=== PATIENT | male | born 1945 | race Caucasian/White ===

== ENCOUNTER 2022-10-02 00:49 | Observation (INO) | payer OTHER ==
[2022-10-02 02:29] LABS: HEMATOCRIT 19.1 % (35.4-49); MCH 27.6 pg (25.7-33.7); MCHC 33.3 g/dl (32.0-35.9); MEAN CELL VOLUME 82.6 fl (80-96); MEAN PLT VOLUME 10.7 fl (7.5-11.1); RBC 2.32 M/mm3 (4.00-5.60); RDW 14.9 % (11.9-15.9); WHITE BLOOD COUNT 4.1 K/mm3 (4.0-10.0)
[2022-10-02 02:37] LABS: HEMOGLOBIN 6.4 GM/dL (11.7-16.9)
[2022-10-02 02:38] LABS: PLATELET COUNT 17 10^3/uL (134-434)
[2022-10-02 02:52] LABS: POTASSIUM 4.5 mmol/L (3.5-5.1)
[2022-10-02 02:54] LABS: ALBUMIN 2.9 g/dl (3.4-5.0); BLOOD UREA NITROGEN 23.5 mg/dL (7-18); CALCIUM 7.7 mg/dL (8.5-10.1)
[2022-10-02 02:57] LABS: CREATININE 1.3 mg/dL (0.55-1.3)
[2022-10-02 02:59] LABS: TOT PROT 7.1 g/dl (6.4-8.2)
[2022-10-02 04:21] LABS: ANISOCYTOSIS 2+; CORRECTED WBC 3.69 K/mm3; MACROCYTOSIS 0; OVALOCYTE 2+; TARGET CELLS 1+; TEAR DROP CELLS 2+
[2022-10-02] MEDS ORDERED: DOCUSATE SODIUM 100 MG CAPSULE (FP) PO PRN (05:38)
[2022-10-02] MEDS ORDERED: ACETAMINOPHEN 325 MG TABLET (FP) PO PRN (05:38)
[2022-10-02 06:13] LABS: INR 1.48 (0.83-1.09); PROTHROMBIN TIME (PATIENT) 17.1 SEC (9.7-13.0)
[2022-10-02 06:15] LABS: ACTIVATED PTT 36.2 SECONDS (25.2-36.5)
[2022-10-02 06:23] LABS: MAGNESIUM 1.9 mg/dL (1.8-2.4)
[2022-10-02 06:27] LABS: PHOSPHOROUS 4.2 mg/dL (2.5-4.9)
[2022-10-02 08:01] VITALS: BMI 23.5
[2022-10-03] MEDS ORDERED: MAGNESIUM HYDROX 2400MG/30ML ORAL SUSPENSION 30 ML CUP PO PRN (02:14)
[2022-10-03] MEDS: LORazepam 0.5 MG TABLET PO PRN ×2 (02:26→22:12)
[2022-10-03 08:33] LABS: HEMOGLOBIN 8.4 GM/dL (11.7-16.9); MCH 29.2 pg (25.7-33.7); MCHC 35.1 g/dl (32.0-35.9); MEAN CELL VOLUME 83.4 fl (80-96); MEAN PLT VOLUME 8.4 fl (7.5-11.1); RBC 2.88 M/mm3 (4.00-5.60); RDW 14.9 % (11.9-15.9); WHITE BLOOD COUNT 3.8 K/mm3 (4.0-10.0)
[2022-10-03 08:51] LABS: POTASSIUM 3.8 mmol/L (3.5-5.1)
[2022-10-03 09:01] LABS: PLATELET COUNT 24 10^3/uL (134-434)
[2022-10-03 09:05] LABS: CALCIUM 7.5 mg/dL (8.5-10.1)
[2022-10-03 09:06] LABS: BLOOD UREA NITROGEN 21.4 mg/dL (7-18)
[2022-10-03] MEDS: CALCITRIOL 0.25 MCG CAPSULE (FP) PO SCH ×2 (10:09→22:04)
[2022-10-03] MEDS: NYSTATIN 100,000 UNIT/GM TOPICAL CREAM 15 GM TUBE TP SCH (10:09)
[2022-10-03] MEDS: METOPROLOL TARTRATE 25 MG TABLET (FP) PO SCH (10:09)
[2022-10-03] MEDS: MAGNESIUM OXIDE 400 MG TABLET (FP) PO SCH (10:09)
[2022-10-03] MEDS: OLANZapine 10 MG TABLET PO SCH (10:10)
[2022-10-03] MEDS: PANTOPRAZOLE SOD 40 MG SUSPENSION PACKET PO SCH (10:11)
[2022-10-03 10:22] LABS: ANISOCYTOSIS 3+; MACROCYTOSIS 0
[2022-10-03] MEDS ORDERED: ATORVASTATIN CA 10 MG TABLET (FP) PO SCH (22:00)
[2022-10-03] MEDS ORDERED: MELATONIN 5 MG TABLETS PO ONE (23:45)
[2022-10-04] MEDS ORDERED: MELATONIN 5 MG TABLETS PO ONE (03:15)
[2022-10-04 07:17] VITALS: RESP 18
[2022-10-04 08:27] LABS: HEMATOCRIT 25.3 % (35.4-49); HEMOGLOBIN 8.6 GM/dL (11.7-16.9); MCH 28.9 pg (25.7-33.7); MCHC 34.1 g/dl (32.0-35.9); MEAN CELL VOLUME 84.7 fl (80-96); RBC 2.99 M/mm3 (4.00-5.60); RDW 14.8 % (11.9-15.9)
[2022-10-04 08:31] LABS: MEAN PLT VOLUME 8.4 fl (7.5-11.1); POTASSIUM 3.8 mmol/L (3.5-5.1)
[2022-10-04 08:34] LABS: ALBUMIN 2.8 g/dl (3.4-5.0); CALCIUM 7.4 mg/dL (8.5-10.1)
[2022-10-04 08:35] LABS: BLOOD UREA NITROGEN 20.6 mg/dL (7-18)
[2022-10-04 08:38] LABS: CREATININE 1.1 mg/dL (0.55-1.3)
[2022-10-04 08:39] LABS: TOT PROT 6.8 g/dl (6.4-8.2)
[2022-10-04 08:40] LABS: BILIRUBIN,TOTAL 2.2 mg/dL (0.2-1)
[2022-10-04 09:34] LABS: ANISOCYTOSIS 1+; MACROCYTOSIS 0; OVALOCYTE 1+
[2022-10-04] MEDS: MAGNESIUM OXIDE 400 MG TABLET (FP) PO SCH (09:44)
[2022-10-04] MEDS: CALCITRIOL 0.25 MCG CAPSULE (FP) PO SCH (09:45)
[2022-10-04] MEDS: OLANZapine 10 MG TABLET PO SCH (09:45)
[2022-10-04] MEDS: PANTOPRAZOLE SOD 40 MG SUSPENSION PACKET PO SCH (09:45)
[2022-10-04] MEDS: METOPROLOL TARTRATE 25 MG TABLET (FP) PO SCH (09:45)
[2022-10-04] MEDS: NYSTATIN 100,000 UNIT/GM TOPICAL CREAM 15 GM TUBE TP SCH (09:45)
[2022-10-04 09:50] LABS: PLATELET COUNT 21 10^3/uL (134-434)
[2022-10-04 18:26] VITALS: BP 113/53; PULSE 86; TEMP 98.6
== END 2022-10-04 20:30 ==
LOC: JER 00:49 → JERBED 03:01 → J7W 07:46
PROVIDERS: ADMIT Internal Medicine; ATTEND Family Medicine
PROC: 30233N1 Transfusion of Nonautologous Red Blood Cells into Peripheral Vein, Percutaneous Approach (ICD-10-PCS; principal; 2022-10-02)
DX: D64.9 Anemia, unspecified (principal); C88.0 Waldenstrom macroglobulinemia; Z85.118 Personal history of other malignant neoplasm of bronchus and lung; E03.9 Hypothyroidism, unspecified; J44.9 Chronic obstructive pulmonary disease, unspecified; E78.5 Hyperlipidemia, unspecified; I12.9 Hypertensive chronic kidney disease with stage 1 through stage 4 chronic kidney disease, or unspecified chronic kidney disease; N18.9 Chronic kidney disease, unspecified; Z87.891 Personal history of nicotine dependence; F41.8 Other specified anxiety disorders; K21.9 Gastro-esophageal reflux disease without esophagitis
CPT/HCPCS: 36415; 36430; 36511; 80048; 80053; 82272; 83540; 83550; 83735; 84100; 84443; 84484; 85025; 85610; 85730; 86850; 86900; 86901; 86922; 93005; 93010; 97116-GP; 97162-GP; 99285-25; G0378; P9034; P9038; P9058

== ENCOUNTER 2022-10-04 20:37 | Observation (INO) | payer OTHER ==
[2022-10-04 20:44] VITALS: BMI 24.2
[2022-10-04] MEDS ORDERED: MAGNESIUM HYDROX 2400MG/30ML ORAL SUSPENSION 30 ML CUP PO PRN (23:07)
[2022-10-04] MEDS ORDERED: ACETAMINOPHEN 1000 MG/100 ML BAG IVPB PRN (23:13)
[2022-10-05] MEDS ORDERED: LORazepam 0.5 MG TABLET ONE (00:28)
[2022-10-05] MEDS ORDERED: ATORVASTATIN CA 10 MG TABLET (FP) ONE (00:28)
[2022-10-05] MEDS: LORazepam 0.5 MG TABLET PO PRN ×2 (00:31→18:52)
[2022-10-05] MEDS: ATORVASTATIN CA 10 MG TABLET (FP) PO SCH ×2 (00:32→21:43)
[2022-10-05] MEDS ORDERED: MELATONIN 5 MG TABLETS PO ONE (00:53)
[2022-10-05] MEDS: CALCITRIOL 0.25 MCG CAPSULE (FP) PO SCH ×3 (01:20→21:43)
[2022-10-05 06:50] LABS: HEMATOCRIT 23.8 % (35.4-49); HEMOGLOBIN 8.1 GM/dL (11.7-16.9); MCH 28.8 pg (25.7-33.7); MCHC 34.2 g/dl (32.0-35.9); MEAN CELL VOLUME 84.3 fl (80-96); MEAN PLT VOLUME 10.3 fl (7.5-11.1); RBC 2.82 M/mm3 (4.00-5.60); RDW 14.5 % (11.9-15.9); WHITE BLOOD COUNT 3.4 K/mm3 (4.0-10.0)
[2022-10-05 07:09] LABS: PLATELET COUNT 19 10^3/uL (134-434); POTASSIUM 3.9 mmol/L (3.5-5.1)
[2022-10-05 07:12] LABS: ALBUMIN 2.7 g/dl (3.4-5.0); BLOOD UREA NITROGEN 22.6 mg/dL (7-18)
[2022-10-05 07:17] LABS: TOT PROT 6.4 g/dl (6.4-8.2)
[2022-10-05 07:31] LABS: BILIRUBIN,TOTAL 1.1 mg/dL (0.2-1)
[2022-10-05 09:11] LABS: ANISOCYTOSIS 0; HELMET CELLS 0; HOWELL-JOLLY BODIES 0; MACROCYTOSIS 0; OVALOCYTE 0; ROULEAU 0; SICKELED CELLS 0; TARGET CELLS 0; TEAR DROP CELLS 0; TOXIC GRANULATION 0
[2022-10-05] MEDS: METOPROLOL TARTRATE 25 MG TABLET (FP) PO SCH (10:11)
[2022-10-05] MEDS: MAGNESIUM OXIDE 400 MG TABLET (FP) PO SCH (10:12)
[2022-10-05] MEDS: PANTOPRAZOLE 40 MG TABLET PO SCH (10:12)
[2022-10-05] MEDS: OLANZapine 10 MG TABLET PO SCH (12:33)
[2022-10-05] MEDS: NYSTATIN 100,000 UNIT/GM TOPICAL CREAM 15 GM TUBE TP SCH (12:34)
[2022-10-05] MEDS ORDERED: MELATONIN 5 MG TABLETS PO SCH (22:00)
[2022-10-06 02:21] VITALS: RESP 18
[2022-10-06] MEDS: MAGNESIUM OXIDE 400 MG TABLET (FP) PO SCH (09:12)
[2022-10-06] MEDS: METOPROLOL TARTRATE 25 MG TABLET (FP) PO SCH (09:12)
[2022-10-06] MEDS: CALCITRIOL 0.25 MCG CAPSULE (FP) PO SCH (09:13)
[2022-10-06] MEDS: OLANZapine 10 MG TABLET PO SCH (09:14)
[2022-10-06] MEDS: PANTOPRAZOLE 40 MG TABLET PO SCH (09:15)
[2022-10-06] MEDS: NYSTATIN 100,000 UNIT/GM TOPICAL CREAM 15 GM TUBE TP SCH (09:16)
[2022-10-06 10:19] VITALS: BP 125/65; PULSE 92; TEMP 97.6
== END 2022-10-06 14:13 ==
LOC: JER 20:37 → JERBED 22:52 → J4S 10-05 07:46
PROVIDERS: ADMIT Internal Medicine; ATTEND Family Medicine
DX: S40.211A Abrasion of right shoulder, initial encounter (principal); D64.9 Anemia, unspecified; C88.0 Waldenstrom macroglobulinemia; Z85.118 Personal history of other malignant neoplasm of bronchus and lung; W08.XXXA Fall from other furniture, initial encounter; Y93.89 Activity, other specified; Y92.89 Other specified places as the place of occurrence of the external cause; I12.9 Hypertensive chronic kidney disease with stage 1 through stage 4 chronic kidney disease, or unspecified chronic kidney disease; N18.9 Chronic kidney disease, unspecified; K21.9 Gastro-esophageal reflux disease without esophagitis; F41.8 Other specified anxiety disorders; E03.9 Hypothyroidism, unspecified; J44.9 Chronic obstructive pulmonary disease, unspecified; Z87.891 Personal history of nicotine dependence; M19.90 Unspecified osteoarthritis, unspecified site
CPT/HCPCS: 36415; 70450-TC; 71045-TC-FY; 72125-TC; 72170-TC-FY; 73030-TC-RT-FY; 73521-TC-FY; 80053; 85025; 99285-25; G0378

== ENCOUNTER 2022-10-12 00:23 | Observation (INO) | payer OTHER ==
[2022-10-12 02:25] LABS: HEMATOCRIT 20.8 % (35.4-49); MCH 27.8 pg (25.7-33.7); MCHC 33.7 g/dl (32.0-35.9); MEAN CELL VOLUME 82.5 fl (80-96); RBC 2.53 M/mm3 (4.00-5.60); RDW 14.7 % (11.9-15.9); WHITE BLOOD COUNT 4.9 K/mm3 (4.0-10.0)
[2022-10-12 02:36] LABS: INR 1.45 (0.83-1.09); PROTHROMBIN TIME (PATIENT) 16.8 SEC (9.7-13.0)
[2022-10-12 02:39] LABS: ACTIVATED PTT 38.5 SECONDS (25.2-36.5)
[2022-10-12 02:40] LABS: PLATELET COUNT 16 10^3/uL (134-434)
[2022-10-12 02:43] LABS: POTASSIUM 4.3 mmol/L (3.5-5.1)
[2022-10-12 02:46] LABS: ALBUMIN 2.7 g/dl (3.4-5.0); BLOOD UREA NITROGEN 16.5 mg/dL (7-18); CALCIUM 7.6 mg/dL (8.5-10.1)
[2022-10-12 02:51] LABS: BILIRUBIN,TOTAL 0.9 mg/dL (0.2-1); TOT PROT 6.8 g/dl (6.4-8.2)
[2022-10-12 04:28] LABS: ANISOCYTOSIS 2+; MACROCYTOSIS 0; OVALOCYTE 2+
[2022-10-12] MEDS ORDERED: LORazepam 0.5 MG TABLET PO PRN (09:15)
[2022-10-12] MEDS ORDERED: MAGNESIUM HYDROX 2400MG/30ML ORAL SUSPENSION 30 ML CUP PO PRN (09:15)
[2022-10-12] MEDS ORDERED: FAMOTIDINE 20 MG/50 ML IVPB 20 MG/50 ML MG IVPB ONE (10:29)
[2022-10-12] MEDS ORDERED: MAGNESIUM OXIDE 400 MG TABLET (FP) ONE (10:29)
[2022-10-12] MEDS ORDERED: METOPROLOL TARTRATE 25 MG TABLET (FP) ONE (10:29)
[2022-10-12] MEDS: METOPROLOL TARTRATE 25 MG TABLET (FP) PO SCH (10:37)
[2022-10-12] MEDS: FAMOTIDINE 20 MG/50 ML IVPB 20 MG/50 ML MG IVPB SCH ×2 (10:37→22:20)
[2022-10-12] MEDS: MAGNESIUM OXIDE 400 MG TABLET (FP) PO SCH (10:37)
[2022-10-12] MEDS: OLANZapine 10 MG TABLET PO SCH (10:38)
[2022-10-12] MEDS: CALCITRIOL 0.25 MCG CAPSULE (FP) PO SCH ×2 (11:32→22:18)
[2022-10-12 12:52] LABS: HEMATOCRIT 24.2 % (35.4-49); HEMOGLOBIN 8.2 GM/dL (11.7-16.9); MCH 28.1 pg (25.7-33.7); MCHC 33.7 g/dl (32.0-35.9); MEAN CELL VOLUME 83.3 fl (80-96); MEAN PLT VOLUME 6.5 fl (7.5-11.1); RBC 2.91 M/mm3 (4.00-5.60); RDW 14.7 % (11.9-15.9); WHITE BLOOD COUNT 4.9 K/mm3 (4.0-10.0)
[2022-10-12 12:55] LABS: PLATELET COUNT 12 10^3/uL (134-434)
[2022-10-12 13:43] LABS: POTASSIUM 4.2 mmol/L (3.5-5.1)
[2022-10-12 13:47] LABS: ALBUMIN 2.7 g/dl (3.4-5.0); BLOOD UREA NITROGEN 18.7 mg/dL (7-18); CALCIUM 7.7 mg/dL (8.5-10.1)
[2022-10-12 13:50] LABS: CREATININE 0.8 mg/dL (0.55-1.3)
[2022-10-12 13:52] LABS: BILIRUBIN,TOTAL 1.1 mg/dL (0.2-1); TOT PROT 6.8 g/dl (6.4-8.2)
[2022-10-12 13:54] LABS: ANISOCYTOSIS 1+; MACROCYTOSIS 0
[2022-10-12 18:02] VITALS: RESP 20; BMI 23.7
[2022-10-12] MEDS ORDERED: PHENELZINE SULFATE 15 MG PO SCH (22:00)
[2022-10-12] MEDS ORDERED: ATORVASTATIN CA 10 MG TABLET (FP) PO SCH (22:00)
[2022-10-12] MEDS ORDERED: MELATONIN 5 MG TABLETS PO PRN (22:19)
[2022-10-13 09:03] LABS: HEMATOCRIT 21.7 % (35.4-49); HEMOGLOBIN 7.4 GM/dL (11.7-16.9); MCH 28.3 pg (25.7-33.7); MCHC 34.1 g/dl (32.0-35.9); MEAN CELL VOLUME 82.8 fl (80-96); MEAN PLT VOLUME 8.6 fl (7.5-11.1); PLATELET COUNT 47 10^3/uL (134-434); RBC 2.62 M/mm3 (4.00-5.60); RDW 14.8 % (11.9-15.9); WHITE BLOOD COUNT 3.8 K/mm3 (4.0-10.0)
[2022-10-13 09:34] LABS: CALCIUM 7.7 mg/dL (8.5-10.1)
[2022-10-13 09:35] LABS: ALBUMIN 2.8 g/dl (3.4-5.0); BLOOD UREA NITROGEN 19.6 mg/dL (7-18)
[2022-10-13 09:38] LABS: CREATININE 0.8 mg/dL (0.55-1.3)
[2022-10-13 09:39] LABS: TOT PROT 6.8 g/dl (6.4-8.2)
[2022-10-13 10:32] LABS: ANISOCYTOSIS 0; HELMET CELLS 0; HOWELL-JOLLY BODIES 0; MACROCYTOSIS 0; OVALOCYTE 0; ROULEAU 0; SICKELED CELLS 0; TARGET CELLS 0; TEAR DROP CELLS 0; TOXIC GRANULATION 0
[2022-10-13] MEDS ORDERED: FAMOTIDINE 20 MG TABLET PO SCH (10:45)
[2022-10-13] MEDS: CALCITRIOL 0.25 MCG CAPSULE (FP) PO SCH (10:47)
[2022-10-13] MEDS: METOPROLOL TARTRATE 25 MG TABLET (FP) PO SCH (10:48)
[2022-10-13] MEDS: MAGNESIUM OXIDE 400 MG TABLET (FP) PO SCH (10:48)
[2022-10-13] MEDS: OLANZapine 10 MG TABLET PO SCH (10:48)
[2022-10-13] MEDS: FAMOTIDINE 20 MG/50 ML IVPB 20 MG/50 ML MG IVPB SCH (11:02)
[2022-10-13 12:42] VITALS: BP 140/66; PULSE 85; TEMP 98.8
[2022-10-13] MEDS: PHENELZINE SULFATE 15 MG PO SCH (15:26)
== END 2022-10-13 15:20 ==
LOC: JER 00:23 → JERBED 05:50 → J8W 16:46
PROVIDERS: ADMIT Family Medicine; ATTEND Family Medicine
PROC: 30233N1 Transfusion of Nonautologous Red Blood Cells into Peripheral Vein, Percutaneous Approach (ICD-10-PCS; principal; 2022-10-12)
DX: R79.9 Abnormal finding of blood chemistry, unspecified (principal); C88.0 Waldenstrom macroglobulinemia; I13.10 Hypertensive heart and chronic kidney disease without heart failure, with stage 1 through stage 4 chronic kidney disease, or unspecified chronic kidney disease; E78.5 Hyperlipidemia, unspecified; J44.9 Chronic obstructive pulmonary disease, unspecified; E03.9 Hypothyroidism, unspecified; K21.9 Gastro-esophageal reflux disease without esophagitis; N18.9 Chronic kidney disease, unspecified; Z87.891 Personal history of nicotine dependence
CPT/HCPCS: 36415; 36430; 80053; 84484; 85025; 85610; 85730; 86850; 86900; 86901; 86922; 93005; 93010; 99285-25; G0378; P9034; P9058

== ENCOUNTER 2022-10-19 00:32 | Observation (INO) | payer OTHER ==
[2022-10-19 00:46] VITALS: BMI 23.3
[2022-10-19 01:34] LABS: HEMATOCRIT 20.9 % (35.4-49); HEMOGLOBIN 7.2 GM/dL (11.7-16.9); MCH 28.6 pg (25.7-33.7); MCHC 34.6 g/dl (32.0-35.9); MEAN CELL VOLUME 82.5 fl (80-96); MEAN PLT VOLUME 7.7 fl (7.5-11.1); RBC 2.53 M/mm3 (4.00-5.60); RDW 14.6 % (11.9-15.9); WHITE BLOOD COUNT 3.7 K/mm3 (4.0-10.0)
[2022-10-19 03:17] LABS: ANISOCYTOSIS 2+; MACROCYTOSIS 0; OVALOCYTE 2+; TEAR DROP CELLS 2+
[2022-10-19 03:18] LABS: PLATELET COUNT 18 10^3/uL (134-434)
[2022-10-19] MEDS ORDERED: MAGNESIUM HYDROX 2400MG/30ML ORAL SUSPENSION 30 ML CUP PO PRN (04:44)
[2022-10-19] MEDS ORDERED: LORazepam 0.5 MG TABLET PO PRN (04:44)
[2022-10-19] MEDS ORDERED: ACETAMINOPHEN 325 MG TABLET (FP) PO PRN (05:06)
[2022-10-19] MEDS ORDERED: MELATONIN 5 MG TABLETS PO PRN (05:11)
[2022-10-19] MEDS ORDERED: MAGNESIUM OXIDE 400 MG TABLET (FP) ONE (09:32)
[2022-10-19] MEDS ORDERED: METOPROLOL TARTRATE 25 MG TABLET (FP) ONE (09:32)
[2022-10-19] MEDS ORDERED: METOPROLOL TARTRATE 25 MG TABLET (FP) PO SCH (10:00)
[2022-10-19] MEDS ORDERED: OLANZapine 10 MG TABLET PO SCH (10:00)
[2022-10-19] MEDS ORDERED: ZINC OXIDE 20% TOPICAL OINTMENT 30 GM TUBE TP SCH (10:00)
[2022-10-19] MEDS ORDERED: PHENELZINE SULFATE 15 MG PO SCH ×2 (10:00→22:00)
[2022-10-19] MEDS ORDERED: MAGNESIUM OXIDE 400 MG TABLET (FP) PO SCH (10:00)
[2022-10-19] MEDS ORDERED: CALCITRIOL 0.25 MCG CAPSULE (FP) PO SCH (10:00)
[2022-10-19] MEDS ORDERED: FUROSEMIDE 40 MG/4 ML INJECTABLE VIAL IVPUSH SCH (11:22)
[2022-10-19] MEDS ORDERED: CALCIUM (OYSTER SHELL) 500 MG TABLET (FP) PO SCH (12:00)
[2022-10-19] MEDS ORDERED: FUROSEMIDE 40 MG/4 ML INJECTABLE VIAL ONE (12:09)
[2022-10-19 12:16] VITALS: BP 118/54; PULSE 77; RESP 18; TEMP 98.1
[2022-10-19] MEDS ORDERED: ATORVASTATIN CA 10 MG TABLET (FP) PO SCH (22:00)
== END 2022-10-19 13:40 ==
LOC: JER 00:32 → JERBED 03:36
PROVIDERS: ADMIT Internal Medicine; ATTEND Family Medicine
PROC: 3E033GC Introduction of Other Therapeutic Substance into Peripheral Vein, Percutaneous Approach (ICD-10-PCS; principal; 2022-10-19)
PROC: 30233N1 Transfusion of Nonautologous Red Blood Cells into Peripheral Vein, Percutaneous Approach (ICD-10-PCS; 2022-10-19)
DX: C88.0 Waldenstrom macroglobulinemia (principal); F41.8 Other specified anxiety disorders; K21.9 Gastro-esophageal reflux disease without esophagitis; J44.9 Chronic obstructive pulmonary disease, unspecified; I10 Essential (primary) hypertension; E78.5 Hyperlipidemia, unspecified; D64.9 Anemia, unspecified
CPT/HCPCS: 36415; 36430; 85025; 86850; 86900; 86901; 86922; 93005; 93010; 96374; 99285-25; G0378; P9034; P9058

== ENCOUNTER 2022-11-21 03:57 | Inpatient (IN) | payer OTHER ==
[2022-11-21] MEDS ORDERED: VANCOMYCIN 1,000 MG in DEXTROSE 5%-WATER - 250 ML IVPB ONE (04:05)
[2022-11-21] MEDS ORDERED: ACETAMINOPHEN 1000 MG/100 ML BAG IVPB ONE (04:05)
[2022-11-21] MEDS ORDERED: SODIUM CHLORIDE 0.9% 500 ML INFUS.BAG IV ONE (04:05)
[2022-11-21] MEDS ORDERED: ACETAMINOPHEN INJECTION 100 ML IVPB ONE (04:06)
[2022-11-21] MEDS ORDERED: PIPERACILLIN/TAZOB 4.5 GM 4.5 GM in DEXTROSE 5%-WATER 100 ML IVPB ONE (04:06)
[2022-11-21] MEDS ORDERED: LORazepam 2 MG/ML SDV VIAL IM ONE (04:07)
[2022-11-21] MEDS ORDERED: diazePAM CARPU-JECT 10 MG/2 ML DISP.SYRIN IVPUSH ONE ×2 (04:15→04:25)
[2022-11-21] MEDS ORDERED: diazePAM CARPU-JECT 10 MG/2 ML DISP.SYRIN ONE ×2 (04:16→05:12)
[2022-11-21] MEDS ORDERED: PIPERACILLIN/TAZOB 4.5 GM 4.5 GM/100 ML BAG IVPB ONE (04:19)
[2022-11-21] MEDS ORDERED: VANCOMYCIN/WATER FOR INJ (PEG) 1,000 MG/200 ML BAG IVPB ONE (04:19)
[2022-11-21] MEDS ORDERED: levETIRAcetam 500 MG/5 ML INJECTION VIAL IVPB ONE (04:23)
[2022-11-21 04:27] LABS: HEMATOCRIT 27.1 % (35.4-49); HEMOGLOBIN 9.3 GM/dL (11.7-16.9); MCH 28.3 pg (25.7-33.7); MCHC 34.3 g/dl (32.0-35.9); MEAN CELL VOLUME 82.4 fl (80-96); MEAN PLT VOLUME 8.6 fl (7.5-11.1); PLATELET COUNT 45 10^3/uL (134-434); RBC 3.29 M/mm3 (4.00-5.60); RDW 14.8 % (11.9-15.9); WHITE BLOOD COUNT 14.2 K/mm3 (4.0-10.0)
[2022-11-21] MEDS ORDERED: [UNRECOGNIZED DRUG - REMARK] IVPUSH ONE (04:28)
[2022-11-21 04:37] LABS: VENOUS BASE EXCESS -9.7 mmol/L (-2-2); VENOUS O2 SATURATION 79.3 % (70-80); VENOUS PCO2 36.5 mmHg (38-52); VENOUS PH 7.27 (7.310-7.410)
[2022-11-21] MEDS ORDERED: RAPID SEQUENCE INTUBATION KIT NR ONE (04:39)
[2022-11-21 04:42] LABS: INR 2.11 (0.83-1.09); PROTHROMBIN TIME (PATIENT) 24.3 SEC (9.7-13.0)
[2022-11-21 04:44] LABS: ACTIVATED PTT 39.3 SECONDS (25.2-36.5)
[2022-11-21 04:48] LABS: CHLORIDE 106 mmol/L (98-107); SODIUM 144 mmol/L (136-145)
[2022-11-21] MEDS ORDERED: NOREPINEPHRINE BITARTRATE/D5W 8 MG/250 ML BAG IVPB ONE (04:48)
[2022-11-21 04:50] LABS: ALBUMIN 2.9 g/dl (3.4-5.0); BLOOD UREA NITROGEN 37.1 mg/dL (7-18); CALCIUM 8.7 mg/dL (8.5-10.1); CO2 22 mmol/L (21-32); GLUCOSE,RANDOM 116 mg/dL (74-106)
[2022-11-21] MEDS ORDERED: PHENYLEPHRINE HCL 10 MG/1 ML SINGLE DOSE VIAL ONE ×2 (04:51→04:53)
[2022-11-21 04:53] LABS: CREATININE 2.1 mg/dL (0.55-1.3); SGOT/AST 92 U/L (15-37)
[2022-11-21 04:54] LABS: SGPT/ALT 32 U/L (13-61)
[2022-11-21 04:55] LABS: BILIRUBIN,TOTAL 0.9 mg/dL (0.2-1); TOT PROT 7.7 g/dl (6.4-8.2)
[2022-11-21 04:56] LABS: ALK PHOS 144 U/L (45-117)
[2022-11-21] MEDS ORDERED: FENTANYL CITRATE/PF 50 MCG/ML VIAL ONE (05:02)
[2022-11-21 05:09] LABS: URINE APPEARANCE CLEAR; URINE BILIRUBIN NEGATIVE (NEGATIVE); URINE COLOR DK YELLOW; URINE GLUCOSE (UA) NEGATIVE (NEGATIVE); URINE KETONE NEGATIVE (NEGATIVE); URINE LEUK ESTERASE NEGATIVE (NEGATIVE); URINE NITRITE NEGATIVE (NEGATIVE); URINE PROTEIN TRACE (NEGATIVE)
[2022-11-21 05:15] LABS: ANION GAP 16 MMOL/L (8-16)
[2022-11-21] MEDS ORDERED: PHENYLEPHRINE NS PREMIX 50,000 MCG/500 ML BAG CVP SCH (05:30)
[2022-11-21] MEDS ORDERED: MIDAZOLAM IN 0.9 % SOD.CHLORID 1 MG/1 ML PLAST..BAG ONE (05:36)
[2022-11-21] MEDS ORDERED: CALCIUM GLUCONATE 10% - 1,000 MG/10 ML VIAL IVPB ONE (05:42)
[2022-11-21] MEDS ORDERED: INSULIN REGULAR HUMAN 100 UNITS/ML *VIAL IVPUSH ONE ×2 (05:42→06:06)
[2022-11-21] MEDS ORDERED: DEXTROSE 50%-WATER - 25 GM/50 ML VIAL IVPUSH ONE (05:43)
[2022-11-21] MEDS ORDERED: MIDAZOLAM IN 0.9 % SOD.CHLORID 100 MG/100 ML PLAST..BAG IVPB SCH (05:45)
[2022-11-21] MEDS ORDERED: CALCIUM GLUC IN NACL, ISO-OSM 1 GM/50 ML BAG IVPB ONE (05:53)
[2022-11-21] MEDS ORDERED: DEXTROSE 50%-WATER 25 GM/50 ML DISP.SYRIN ONE (05:53)
[2022-11-21 06:55] LABS: ARTERIAL BLOOD GAS BASE EXCESS -4.4 mmol/L (-2-2); ARTERIAL BLOOD GAS PO2 51.7 mmHg (80-100); ARTERIAL BLOOD GAS pH 7.282 (7.350-7.450)
[2022-11-21 06:57] LABS: ALLENS TEST POSITIVE
[2022-11-21 06:58] LABS: VENT MODE A/C; VENT RATE 14
[2022-11-21 08:30] LABS: LACTIC ACID 3.2 mmol/L (0.4-2.0)
[2022-11-21 09:34] VITALS: BMI 21.0
[2022-11-21 11:28] LABS: ALBUMIN 2.8 g/dl (3.4-5.0); BILIRUBIN,TOTAL 1.1 mg/dL (0.2-1); BLOOD UREA NITROGEN 46.2 mg/dL (7-18); CALCIUM 7.6 mg/dL (8.5-10.1); CREATININE 2.1 mg/dL (0.55-1.3); POTASSIUM 5.6 mmol/L (3.5-5.1); TOT PROT 6.7 g/dl (6.4-8.2)
[2022-11-21] MEDS ORDERED: LACTATED RINGERS SOLUTION 1,000 ML/1,000 ML INFUS.BAG IV STA ×2 (12:00→17:13)
[2022-11-21] MEDS ORDERED: FENTANYL IVPB 500 MCG/100 ML BAG IVPB SCH (12:15)
[2022-11-21] MEDS ORDERED: NOREPINEPHRINE BITARTRATE/D5W 8 MG/250 ML BAG IVPB SCH (12:15)
[2022-11-21] MEDS: PIPERACILLIN/TAZOB 2.25 GM 2.25 GM in DEXTROSE 5%-WATER - 50 ML IVPB SCH ×2 (12:20→18:06)
[2022-11-21] MEDS: NOREPINEPHRINE 0.9 % NACL 8 MG/250 ML BAG IVPB SCH (13:09)
[2022-11-21] MEDS ORDERED: FENTANYL NS IVPB 500 MCG/100 ML BAG IVPB ONE (13:32)
[2022-11-21] MEDS: FENTANYL NS IVPB 500 MCG/100 ML BAG IVPB SCH (13:40)
[2022-11-21] MEDS: HEPARIN NA (PORCINE) 5,000 UNITS/ML 1ML VIAL SQ SCH ×2 (15:06→23:35)
[2022-11-21] MEDS ORDERED: ACETAMINOPHEN 1000 MG/100 ML BAG IVPB STA (17:16)
[2022-11-21] MEDS ORDERED: PIPERACILLIN/TAZOB 2.25 GM 2.25 GM in DEXTROSE 5%-WATER - 50 ML IVPB SCH (18:00)
[2022-11-21 18:12] LABS: ACTIVATED PTT 40.5 SECONDS (25.2-36.5)
[2022-11-21 18:31] LABS: LACTIC ACID 3.4 mmol/L (0.4-2.0)
[2022-11-21 18:35] LABS: HEMATOCRIT 22.1 % (35.4-49); HEMOGLOBIN 7.4 GM/dL (11.7-16.9); MCH 27.6 pg (25.7-33.7); MCHC 33.4 g/dl (32.0-35.9); MEAN CELL VOLUME 82.8 fl (80-96); MEAN PLT VOLUME 8.2 fl (7.5-11.1); RBC 2.68 M/mm3 (4.00-5.60); RDW 14.6 % (11.9-15.9); WHITE BLOOD COUNT 3.6 K/mm3 (4.0-10.0)
[2022-11-21 18:38] LABS: PLATELET COUNT 18 10^3/uL (134-434)
[2022-11-21 18:45] LABS: INR 2.51 (0.83-1.09); PROTHROMBIN TIME (PATIENT) 28.9 SEC (9.7-13.0)
[2022-11-21 19:15] LABS: BLOOD UREA NITROGEN 50.2 mg/dL (7-18); CALCIUM 7.1 mg/dL (8.5-10.1); MAGNESIUM 2.6 mg/dL (1.8-2.4); PHOSPHOROUS 6.4 mg/dL (2.5-4.9); POTASSIUM 5.3 mmol/L (3.5-5.1)
[2022-11-21] MEDS ORDERED: VANCOMYCIN/WATER FOR INJ (PEG) 1,000 MG/200 ML BAG IVPB SCH (19:30)
[2022-11-21] MEDS ORDERED: VASOPRESSIN 20 UNITS/ML VIAL IV ONE (20:29)
[2022-11-21] MEDS ORDERED: VASOPRESSIN 40 UNITS/100 ML BAG IV SCH (21:00)
[2022-11-22] MEDS ORDERED: ACETAMINOPHEN 1000 MG/100 ML BAG IVPB STA (01:09)
[2022-11-22] MEDS: PIPERACILLIN/TAZOB 2.25 GM 2.25 GM in DEXTROSE 5%-WATER - 50 ML IVPB SCH ×2 (01:25→10:56)
[2022-11-22] MEDS: NOREPINEPHRINE 0.9 % NACL 8 MG/250 ML BAG IVPB SCH ×2 (01:36→18:03)
[2022-11-22 06:22] LABS: ARTERIAL BLOOD GAS BASE EXCESS -12.4 mmol/L (-2-2); ARTERIAL BLOOD GAS pH 7.184 (7.350-7.450)
[2022-11-22 06:25] LABS: ALLENS TEST POSITIVE
[2022-11-22 06:26] LABS: VENT MODE A/C; VENT RATE 14
[2022-11-22 06:29] LABS: ARTERIAL BLOOD GAS PO2 38.3 mmHg (80-100)
[2022-11-22 07:58] LABS: INR 3.39 (0.83-1.09); PROTHROMBIN TIME (PATIENT) 38.9 SEC (9.7-13.0)
[2022-11-22 08:01] LABS: ACTIVATED PTT 40.9 SECONDS (25.2-36.5); POTASSIUM 5.6 mmol/L (3.5-5.1)
[2022-11-22 08:04] LABS: CALCIUM 7.2 mg/dL (8.5-10.1)
[2022-11-22 08:05] LABS: BLOOD UREA NITROGEN 59.8 mg/dL (7-18); MAGNESIUM 2.5 mg/dL (1.8-2.4)
[2022-11-22 08:08] LABS: CREATININE 2.4 mg/dL (0.55-1.3)
[2022-11-22 08:10] LABS: HEMATOCRIT 31.4 % (35.4-49); HEMOGLOBIN 10.7 GM/dL (11.7-16.9); MCH 28.2 pg (25.7-33.7); MCHC 34.2 g/dl (32.0-35.9); MEAN CELL VOLUME 82.4 fl (80-96); MEAN PLT VOLUME 10.9 fl (7.5-11.1); RBC 3.81 M/mm3 (4.00-5.60); RDW 16.3 % (11.9-15.9)
[2022-11-22 08:26] LABS: PLATELET COUNT 14 10^3/uL (134-434)
[2022-11-22 08:49] LABS: PHOSPHOROUS 8.7 mg/dL (2.5-4.9)
[2022-11-22 09:05] LABS: EPI CELLS 4 /uL (0-25.1); HYALINE CASTS 1 /uL (0-3.1); URINE APPEARANCE TURBID; URINE BILIRUBIN NEGATIVE (NEGATIVE); URINE COLOR DK YELLOW; URINE GLUCOSE (UA) NEGATIVE (NEGATIVE); URINE KETONE NEGATIVE (NEGATIVE); URINE LEUK ESTERASE NEGATIVE (NEGATIVE); URINE NITRITE NEGATIVE (NEGATIVE); URINE PROTEIN 2+ (NEGATIVE); URINE RBC 36 /uL (0-23.9)
[2022-11-22 09:09] LABS: URINE BACTERIA 3 /uL (0-1359); URINE WBC 66 /uL (0-25.8)
[2022-11-22] MEDS ORDERED: DEXTROSE 50%-WATER - 25 GM/50 ML VIAL IVPUSH ONE (09:10)
[2022-11-22] MEDS ORDERED: INSULIN REGULAR HUMAN 100 UNITS/ML *VIAL IVPUSH ONE (09:10)
[2022-11-22] MEDS ORDERED: LACTATED RINGERS SOLUTION 1,000 ML/1,000 ML INFUS.BAG IV SCH (10:00)
[2022-11-22] MEDS ORDERED: SODIUM ZIRCONIUM CYCLOSILICATE (LOKELMA) 5 GM PACKET NGT SCH (10:00)
[2022-11-22] MEDS ORDERED: PANTOPRAZOLE SODIUM 40 MG VIAL IVPUSH SCH (10:00)
[2022-11-22] MEDS ORDERED: HEPARIN NA (PORCINE) 5,000 UNITS/ML 1ML VIAL SQ SCH (10:00)
[2022-11-22] MEDS ORDERED: PHYTONADIONE 10 MG/1 ML AMP IVPB ONE (10:05)
[2022-11-22] MEDS ORDERED: VANCOMYCIN/WATER FOR INJ (PEG) 1,000 MG/200 ML BAG IVPB ONE (10:44)
[2022-11-22] MEDS ORDERED: ACETAMINOPHEN 1000 MG/100 ML BAG IVPB PRN (10:52)
[2022-11-22] MEDS ORDERED: DEXTROSE 50%-WATER 25 GM/50 ML DISP.SYRIN ONE (10:54)
[2022-11-22] MEDS ORDERED: LACTATED RINGERS SOLUTION 1,000 ML/1,000 ML INFUS.BAG IV STA ×2 (10:57→19:44)
[2022-11-22] MEDS ORDERED: MEROPENEM 1 GM in DEXTROSE 5%-WATER 100 ML IVPB SCH (11:00)
[2022-11-22 11:37] LABS: ANISOCYTOSIS 0; CORRECTED WBC 3.48 K/mm3; MACROCYTOSIS 0
[2022-11-22] MEDS: FENTANYL NS IVPB 500 MCG/100 ML BAG IVPB SCH (14:10)
[2022-11-22 16:06] VITALS: TEMP 97.8
[2022-11-22 17:01] LABS: LACTIC ACID 11.5 mmol/L (0.4-2.0)
[2022-11-22 19:31] VITALS: BP 110/59; PULSE 98
[2022-11-22 21:38] VITALS: RESP 28
[2022-11-22] MEDS ORDERED: VANCOMYCIN/WATER FOR INJ (PEG) 1,000 MG/200 ML BAG IVPB SCH (23:00)
[2022-11-22 23:26] LABS: COCAINE, UR NEGATIVE (NEGATIVE)
[2022-11-22 23:27] LABS: METHADONE, UR NEGATIVE (NEGATIVE); OPIATES, URI NEGATIVE (NEGATIVE); PHENCYCLIDINE,URINE NEGATIVE (NEGATIVE); URINE BARBITURATES NEGATIVE (NEGATIVE)
[2022-11-22 23:45] LABS: URINE AMPHETAMINES NEGATIVE (NEGATIVE); URINE BENZODIAZEPINES POSITIVE (NEGATIVE)
== END 2022-11-22 23:25 | disposition expired | DRG 871 ==
LOC: JER 03:57 → JERBED 04:57 → JICU 08:23
PROVIDERS: ADMIT Internal Medicine Pulmonary Disease; ATTEND Internal Medicine Pulmonary Disease
PROC: 0BH17EZ Insertion of Endotracheal Airway into Trachea, Via Natural or Artificial Opening (ICD-10-PCS; principal; 2022-11-21)
PROC: 5A1945Z Respiratory Ventilation, 24-96 Consecutive Hours (ICD-10-PCS; 2022-11-21)
PROC: 05HN33Z Insertion of Infusion Device into Left Internal Jugular Vein, Percutaneous Approach (ICD-10-PCS; 2022-11-21)
PROC: B544ZZA Ultrasonography of Left Jugular Veins, Guidance (ICD-10-PCS; 2022-11-21)
PROC: 30233N1 Transfusion of Nonautologous Red Blood Cells into Peripheral Vein, Percutaneous Approach (ICD-10-PCS; 2022-11-21)
DX: A41.9 Sepsis, unspecified organism (principal); J96.01 Acute respiratory failure with hypoxia; R65.21 Severe sepsis with septic shock; K72.00 Acute and subacute hepatic failure without coma; C34.90 Malignant neoplasm of unspecified part of unspecified bronchus or lung; J44.0 Chronic obstructive pulmonary disease with (acute) lower respiratory infection; N17.9 Acute kidney failure, unspecified; E87.20 Acidosis, unspecified; C91.10 Chronic lymphocytic leukemia of B-cell type not having achieved remission; E87.5 Hyperkalemia; F42.9 Obsessive-compulsive disorder, unspecified; N18.9 Chronic kidney disease, unspecified; D46.9 Myelodysplastic syndrome, unspecified; I73.9 Peripheral vascular disease, unspecified; E03.9 Hypothyroidism, unspecified; K21.9 Gastro-esophageal reflux disease without esophagitis; E78.5 Hyperlipidemia, unspecified; F41.8 Other specified anxiety disorders; I46.9 Cardiac arrest, cause unspecified; I95.9 Hypotension, unspecified; R00.0 Tachycardia, unspecified; D69.6 Thrombocytopenia, unspecified; Z85.79 Personal history of other malignant neoplasms of lymphoid, hematopoietic and related tissues
CPT/HCPCS: 0241U-QW; 36415; 36430; 36600; 70450-TC; 71045-TC-FY; 80048; 80053; 80307; 81003; 82550; 82553; 82803; 82962; 83605; 83735; 84100; 85025; 85027; 85384; 85610; 85730; 86850; 86900; 86901; 86922; 87040; 87070; 87086; 87186; 87205; 87899; 93005; 93010; 94002; 99285-25; G0480; J1644; J3490; P9058